=== PATIENT | male | born 1960 | race African-American/Black ===

== ENCOUNTER 2016-09-11 19:58 | Emergency (ER) | payer OTHER ==
[~2016-09-11 19:58] MED LIST: CIPRO PO; NO MEDICATIONS; VICODIN 5/1 TAB 5/50 PO
== END 2016-09-11 20:00 | disposition left against medical advice (07) ==
LOC: CED 19:58
DX: Z53.21 Procedure and treatment not carried out due to patient leaving prior to being seen by health care provider (principal)